=== PATIENT | male | born 1990 | race African-American/Black ===

== ENCOUNTER 2017-12-17 10:51 | Emergency (ER) | payer OTHER ==
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
== END 2017-12-17 12:04 | disposition home or self-care (01) ==
LOC: ERS 10:51
DX: S06.0X0A Concussion without loss of consciousness, initial encounter (principal); S40.012A Contusion of left shoulder, initial encounter; W20.8XXA Other cause of strike by thrown, projected or falling object, initial encounter; Y92.69 Other specified industrial and construction area as the place of occurrence of the external cause
CPT/HCPCS: 70450; G0390